=== PATIENT | female | born 1940 | race Caucasian/White ===

== ENCOUNTER 2017-11-18 15:57 | Emergency (ER) | payer OTHER ==
[~2017-11-18] VITALS: Ht 162.6 cm; Wt 106.4 kg
[~2017-11-18 15:57] MED LIST: ASPIR 8181 M1; CVS FISH OIL 11 EAC1; HYDROCHLOROTHIA25 MG PO; LEVOTHYROXINE88 MCG; TOPROL XL100 MG PO
[2017-11-18 16:27] LABS: BASOPHIL (%) 0.3 % (0-1); EOSINOPHIL COUNT 0.1 K/uL (0-0.3); HEMATOCRIT 42.2 % (36.0-46.0); HEMOGLOBIN 14.6 G/DL (11.9-15.5); IMMATURE GRANULOCYTE (%) 0.4 % (0.0-0.7); LYMPHOCYTE (%) 26.7 % (15-42); LYMPHOCYTE COUNT 1.9 K/uL (1.0-2.8); MCH 32.9 PG (29.0-34.0); MCHC 34.6 G/DL (30.0-36.0); MONOCYTE (%) 9.9 % (3-12); MONOCYTE COUNT 0.7 K/uL (0-0.8); NEUTROPHIL (%) 60.7 % (45-76); NEUTROPHIL COUNT 4.2 K/uL (1.8-6.4); PLATELET COUNT 230 K/uL (156-360); RBC DIS.WIDTH-CV 11.9 % (11.8-14.6); RBC DIS.WIDTH-SD 41.7 % (39-53); RED BLOOD COUNT 4.44 M/uL (3.80-5.20); WHITE BLOOD COUNT 6.9 K/uL (4.1-10.2)
[2017-11-18 16:35] LABS: CHLORIDE 98 mEq/L (99-109); POTASSIUM 4.2 mEq/L (3.7-5.4); PTT 29.8 SEC (25-37); SODIUM 137 mEq/L (136-147)
[2017-11-18 16:37] LABS: GLUCOSE 295 mg/dL (70-99)
[2017-11-18 16:39] LABS: TOTAL BILIRUBIN 0.5 mg/dL (0.0-1.0)
[2017-11-18 16:41] LABS: ALKALINE PHOSPHATASE 99 IU/L (3-129); CREATININE 1.1 mg/dL (0.6-1.3); GFR ESTIMATE (CALCULATED) 51 mL/min/
[2017-11-18 16:42] LABS: UREA NITROGEN (BUN) 16 mg/dL (9-23)
[2017-11-18 16:43] LABS: AST (GOT) 44 IU/L (2-34)
[2017-11-18 16:44] LABS: ALT (GPT) 36 IU/L (3-49)
[2017-11-18 19:13] VITALS: BP 176/69
== END 2017-11-18 19:13 | disposition short-term general hospital (02) ==
LOC: EME 15:57
PROVIDERS: Emergency Medicine
DX: I74.3 Embolism and thrombosis of arteries of the lower extremities (principal); R00.1 Bradycardia, unspecified; I45.10 Unspecified right bundle-branch block; I10 Essential (primary) hypertension; E11.9 Type 2 diabetes mellitus without complications; Z79.82 Long term (current) use of aspirin; Z88.8 Allergy status to other drugs, medicaments and biological substances
CPT/HCPCS: 80053; 83605; 85025; 85610; 85730; 93005; 99281; 99285

== ENCOUNTER 2017-12-18 10:53 | Day surgery (SDC) | payer OTHER ==
[~2017-12-18] VITALS: Ht 162.6 cm; Wt 103.9 kg
[~2017-12-18 10:53] MED LIST changes: +ADULT ASPIRIN R81 MG PO; +ELIQUIS5 MG PO; +JANUVIA100 MG PO; +LEVOTHYROXINE100 MCG PO; +LOPRESSOR100 M1 PO
[2017-12-18 11:33] LABS: HEMATOCRIT 39.6 % (36.0-46.0); HEMOGLOBIN 13.3 G/DL (11.9-15.5); MCH 33.1 PG (29.0-34.0); MCHC 33.6 G/DL (30.0-36.0); MCV 98.5 FL (83-99); PLATELET COUNT 282 K/uL (156-360); RBC DIS.WIDTH-CV 13.2 % (11.8-14.6); RBC DIS.WIDTH-SD 47.6 % (39-53); RED BLOOD COUNT 4.02 M/uL (3.80-5.20); WHITE BLOOD COUNT 12.7 K/uL (4.1-10.2)
[2017-12-18 11:42] LABS: CHLORIDE 107 mEq/L (99-109); POTASSIUM 4.5 mEq/L (3.7-5.4); SODIUM 141 mEq/L (136-147)
[2017-12-18 11:44] LABS: GLUCOSE 146 mg/dL (70-99)
[2017-12-18 11:48] LABS: CREATININE 1.1 mg/dL (0.6-1.3); GFR ESTIMATE (CALCULATED) 51 mL/min/
[2017-12-18 11:49] LABS: UREA NITROGEN (BUN) 9 mg/dL (9-23)
[2017-12-18 12:01] VITALS: BP 167/71
[2017-12-18] MEDS ORDERED: NORCO 7.5/321 TABLET PO (13:53)
[2017-12-18 15:33] VITALS: BP 140/63
[2017-12-18 16:40] VITALS: BP 137/64
[2017-12-18 17:56] VITALS: BP 123/90
== END 2017-12-18 18:30 | disposition home or self-care (01) ==
LOC: SDC 10:53
PROVIDERS: Surgery
DX: I97.638 Postprocedural hematoma of a circulatory system organ or structure following other circulatory system procedure (principal); T81.4XXA Infection following a procedure, initial encounter; E11.51 Type 2 diabetes mellitus with diabetic peripheral angiopathy without gangrene; I10 Essential (primary) hypertension; E78.5 Hyperlipidemia, unspecified; I48.0 Paroxysmal atrial fibrillation; I25.2 Old myocardial infarction; K21.9 Gastro-esophageal reflux disease without esophagitis; E66.01 Morbid (severe) obesity due to excess calories; Z68.41 Body mass index [BMI] 40.0-44.9, adult; Z79.82 Long term (current) use of aspirin; Z86.19 Personal history of other infectious and parasitic diseases
CPT/HCPCS: 80048; 82948; 85027; 87070; 87075; 87076; 87077; 87147; 87186; 87205; 93005; J0690; J1644; J2405; J2543; J3010; J3370; J7050; Q0175; S0020

== ENCOUNTER 2017-12-21 03:58 | Inpatient (IN) | payer OTHER ==
[~2017-12-21] VITALS: Ht 162.6 cm; Wt 114.5 kg
[~2017-12-21 03:58] MED LIST changes: +NORCO 7.5/321 TABLET PO
[2017-12-21 05:01] LABS: HEMATOCRIT 33.9 % (36.0-46.0); HEMOGLOBIN 11.4 G/DL (11.9-15.5); MCHC 33.6 G/DL (30.0-36.0); MCV 98.3 FL (83-99); PLATELET COUNT 275 K/uL (156-360); RBC DIS.WIDTH-CV 13.2 % (11.8-14.6); RBC DIS.WIDTH-SD 46.9 % (39-53); RED BLOOD COUNT 3.45 M/uL (3.80-5.20); WHITE BLOOD COUNT 8.4 K/uL (4.1-10.2)
[2017-12-21 05:10] LABS: CHLORIDE 108 mEq/L (99-109); POTASSIUM 4.2 mEq/L (3.7-5.4); SODIUM 141 mEq/L (136-147)
[2017-12-21 05:11] LABS: GLUCOSE 168 mg/dL (70-99)
[2017-12-21 05:15] LABS: CREATININE 1.1 mg/dL (0.6-1.3); GFR ESTIMATE (CALCULATED) 51 mL/min/
[2017-12-21 05:16] LABS: UREA NITROGEN (BUN) 11 mg/dL (9-23)
[2017-12-21 06:01] LABS: ANISOCYTOSIS 1+; BASOPHIL (%) 0.4 % (0-1); EOSINOPHIL (%) 2.6 % (0-5); EOSINOPHIL COUNT 0.2 K/uL (0-0.3); IMMATURE GRANULOCYTE (%) 0.8 % (0.0-0.7); LYMPHOCYTE (%) 14.7 % (15-42); LYMPHOCYTE COUNT 1.2 K/uL (1.0-2.8); MONOCYTE (%) 14.8 % (3-12); MONOCYTE COUNT 1.3 K/uL (0-0.8); NEUTROPHIL (%) 66.7 % (45-76); NEUTROPHIL COUNT 5.6 K/uL (1.8-6.4)
[2017-12-21 08:07] VITALS: BP 160/80
[2017-12-21 11:16] VITALS: BP 152/70
[2017-12-21] MEDS ORDERED: BACTRIM,SEPT1 TABLET PO (13:13)
[2017-12-21] MEDS ORDERED: TOUJEO SOL300 UNIT/1 SC (13:13)
[2017-12-21 16:19] VITALS: BP 160/80
[2017-12-21 19:08] VITALS: BP 162/84
[2017-12-21 23:45] VITALS: BP 160/72
[2017-12-22 02:06] VITALS: BP 190/82
[2017-12-22 07:57] VITALS: BP 125/89
[2017-12-22 08:17] VITALS: BP 151/68
[2017-12-22 11:39] VITALS: BP 143/63
[2017-12-22 15:36] VITALS: BP 145/68
[2017-12-22 20:32] VITALS: BP 143/64
[2017-12-23 00:44] VITALS: BP 142/65
[2017-12-23 04:06] VITALS: BP 136/74
[2017-12-23 07:20] LABS: BASOPHIL (%) 0.6 % (0-1); EOSINOPHIL (%) 3.9 % (0-5); EOSINOPHIL COUNT 0.3 K/uL (0-0.3); HEMATOCRIT 33.7 % (36.0-46.0); HEMOGLOBIN 10.7 G/DL (11.9-15.5); IMMATURE GRANULOCYTE (%) 0.7 % (0.0-0.7); LYMPHOCYTE (%) 16.4 % (15-42); LYMPHOCYTE COUNT 1.1 K/uL (1.0-2.8); MCH 31.9 PG (29.0-34.0); MCHC 31.8 G/DL (30.0-36.0); MCV 100.6 FL (83-99); MONOCYTE (%) 15.5 % (3-12); MONOCYTE COUNT 1.1 K/uL (0-0.8); NEUTROPHIL (%) 62.9 % (45-76); NEUTROPHIL COUNT 4.3 K/uL (1.8-6.4); PLATELET COUNT 269 K/uL (156-360); RBC DIS.WIDTH-CV 13.7 % (11.8-14.6); RBC DIS.WIDTH-SD 50.6 % (39-53); RED BLOOD COUNT 3.35 M/uL (3.80-5.20); WHITE BLOOD COUNT 6.9 K/uL (4.1-10.2)
[2017-12-23 07:45] LABS: CHLORIDE 110 MEQ/L (99-109); GFR ESTIMATE (CALCULATED) 18 mL/min/; GLUCOSE 138 mg/dL (70-99); POTASSIUM 4.6 MEQ/L (3.7-5.4); SODIUM 143 MEQ/L (136-147)
[2017-12-23 07:50] LABS: CREATININE 2.7 MG/DL (0.6-1.3); UREA NITROGEN (BUN) 21 mg/dL (9-23)
[2017-12-23 08:08] VITALS: BP 147/68
[2017-12-23 11:48] VITALS: BP 115/61
[2017-12-23 15:51] VITALS: BP 138/70
[2017-12-23 19:46] VITALS: BP 152/74
[2017-12-24 00:16] VITALS: BP 153/70
[2017-12-24 04:13] VITALS: BP 152/72
[2017-12-24 06:18] LABS: BASOPHIL (%) 0.4 % (0-1); EOSINOPHIL (%) 3.7 % (0-5); EOSINOPHIL COUNT 0.3 K/uL (0-0.3); HEMATOCRIT 32.6 % (36.0-46.0); HEMOGLOBIN 10.4 G/DL (11.9-15.5); IMMATURE GRANULOCYTE (%) 0.6 % (0.0-0.7); LYMPHOCYTE (%) 12.5 % (15-42); LYMPHOCYTE COUNT 0.9 K/uL (1.0-2.8); MCH 31.5 PG (29.0-34.0); MCHC 31.9 G/DL (30.0-36.0); MCV 98.8 FL (83-99); MONOCYTE (%) 13.1 % (3-12); MONOCYTE COUNT 0.9 K/uL (0-0.8); NEUTROPHIL (%) 69.7 % (45-76); PLATELET COUNT 258 K/uL (156-360); RBC DIS.WIDTH-CV 13.6 % (11.8-14.6); RBC DIS.WIDTH-SD 49.4 % (39-53); WHITE BLOOD COUNT 7.1 K/uL (4.1-10.2)
[2017-12-24 08:00] VITALS: BP 176/72
[2017-12-24 08:48] LABS: CHLORIDE 108 MEQ/L (99-109); GFR ESTIMATE (CALCULATED) 12 mL/min/; GLUCOSE 164 mg/dL (70-99); POTASSIUM 4.3 MEQ/L (3.7-5.4); SODIUM 139 MEQ/L (136-147); UREA NITROGEN (BUN) 27 mg/dL (9-23)
[2017-12-24 11:05] VITALS: BP 144/67
[2017-12-24 15:39] VITALS: BP 168/74
[2017-12-24 18:22] LABS: CREATINE KINASE 41 IU/L (1-294); FASTING STATUS RT
[2017-12-24 19:30] LABS: APPEARANCE CLEAR ((CLEAR)); BILIRUBIN NEGATIVE; BLOOD MODERATE; COLOR YELLOW ((YELLOW)); GLUCOSE (STRIP) NEGATIVE; KETONES NEGATIVE; LEUKOCYTES MODERATE; NITRITE NEGATIVE; PROTEIN (STRIP) 30; SPECIFIC GRAVITY 1.012 (1.000-1.030); UROBILINOGEN 0.2 MG/DL (0.2-1.0)
[2017-12-24 19:36] LABS: BACTERIA RARE /HPF; EPITHELIAL CELLS 2+ /HPF; HYALINE CASTS 0-5 /LPF; MUCUS TRACE /LPF
[2017-12-24 20:45] LABS: UR CREATININE CONCENTRATION 131.2 MG/DL
[2017-12-24 21:20] LABS: EOSINOPHILS,URINE NONE SEEN
[2017-12-24 23:54] VITALS: BP 181/77
[2017-12-25 05:27] VITALS: BP 160/74
[2017-12-25 05:58] LABS: ALBUMIN 2.7 G/DL (3.2-4.8); CHLORIDE 105 MEQ/L (99-109); CREATININE 4.5 MG/DL (0.6-1.3); GFR ESTIMATE (CALCULATED) 10 mL/min/; GLUCOSE 165 mg/dL (70-99); PHOSPHORUS 4.6 mg/dL (2.5-4.9); POTASSIUM 4.3 MEQ/L (3.7-5.4); SODIUM 135 MEQ/L (136-147); UREA NITROGEN (BUN) 34 mg/dL (9-23)
[2017-12-25 06:01] LABS: C4 COMPLEMENT 27 MG/DL (10-40)
[2017-12-25 08:11] VITALS: BP 177/74
[2017-12-25 16:35] VITALS: BP 184/81
[2017-12-26] VITALS: BP 185/79
[2017-12-26 06:48] LABS: ALBUMIN 2.7 G/DL (3.2-4.8); CHLORIDE 106 MEQ/L (99-109); CREATININE 5.2 MG/DL (0.6-1.3); GFR ESTIMATE (CALCULATED) 9 mL/min/; GLUCOSE 155 mg/dL (70-99); PHOSPHORUS 4.5 mg/dL (2.5-4.9); POTASSIUM 4.5 MEQ/L (3.7-5.4); SODIUM 134 MEQ/L (136-147); UREA NITROGEN (BUN) 37 mg/dL (9-23)
[2017-12-26 08:07] VITALS: BP 186/78
[2017-12-26 12:00] VITALS: BP 176/81
[2017-12-26 15:29] VITALS: BP 155/67
[2017-12-26 21:08] VITALS: BP 175/82
[2017-12-27 00:16] VITALS: BP 168/72
[2017-12-27 05:11] VITALS: BP 165/77
[2017-12-27 06:56] LABS: ALBUMIN 2.8 G/DL (3.2-4.8); CHLORIDE 103 MEQ/L (99-109); CREATININE 5.1 MG/DL (0.6-1.3); GFR ESTIMATE (CALCULATED) 9 mL/min/; GLUCOSE 138 mg/dL (70-99); PHOSPHORUS 4.9 mg/dL (2.5-4.9); POTASSIUM 4.5 MEQ/L (3.7-5.4); SODIUM 132 MEQ/L (136-147); UREA NITROGEN (BUN) 39 mg/dL (9-23)
[2017-12-27 08:13] VITALS: BP 169/72
[2017-12-27 15:35] VITALS: BP 143/64
[2017-12-27 23:52] VITALS: BP 154/70
[2017-12-28 07:08] LABS: ALBUMIN 2.7 G/DL (3.2-4.8); CHLORIDE 100 MEQ/L (99-109); CREATININE 5.4 MG/DL (0.6-1.3); GFR ESTIMATE (CALCULATED) 8 mL/min/; GLUCOSE 140 mg/dL (70-99); PHOSPHORUS 5.5 mg/dL (2.5-4.9); POTASSIUM 4.6 MEQ/L (3.7-5.4); SODIUM 130 MEQ/L (136-147); UREA NITROGEN (BUN) 46 mg/dL (9-23)
[2017-12-28 07:49] VITALS: BP 161/70
[2017-12-28 15:38] VITALS: BP 134/70
[2017-12-29 00:37] VITALS: BP 131/63
[2017-12-29 06:18] LABS: ALBUMIN 2.9 G/DL (3.2-4.8); CHLORIDE 99 MEQ/L (99-109); PHOSPHORUS 6.4 mg/dL (2.5-4.9); SODIUM 128 MEQ/L (136-147); UREA NITROGEN (BUN) 52 mg/dL (9-23)
[2017-12-29 06:22] LABS: CREATININE 6.4 MG/DL (0.6-1.3); GFR ESTIMATE (CALCULATED) 7 mL/min/; GLUCOSE 267 mg/dL (70-99); POTASSIUM 5.9 MEQ/L (3.7-5.4)
[2017-12-29 07:39] VITALS: BP 144/61
[2017-12-29 12:13] VITALS: BP 121/56
[2017-12-29 14:31] LABS: CHLORIDE 100 mEq/L (99-109); POTASSIUM 4.2 mEq/L (3.7-5.4); SODIUM 131 mEq/L (136-147)
[2017-12-29 14:42] LABS: GLUCOSE 278 mg/dL (70-99)
[2017-12-29 14:45] LABS: CREATININE 6.5 mg/dL (0.6-1.3); GFR ESTIMATE (CALCULATED) 7 mL/min/
[2017-12-29 14:46] LABS: UREA NITROGEN (BUN) 57 mg/dL (9-23)
[2017-12-29 16:22] VITALS: BP 122/62
[2017-12-29 19:43] VITALS: BP 146/65
[2017-12-29 23:31] VITALS: BP 139/70
[2017-12-30 04:31] VITALS: BP 134/63
[2017-12-30 06:27] LABS: BASOPHIL (%) 0.1 % (0-1); EOSINOPHIL (%) 0 % (0-5); HEMOGLOBIN 11.1 G/DL (11.9-15.5); IMMATURE GRANULOCYTE (%) 0.7 % (0.0-0.7); LYMPHOCYTE (%) 1.8 % (15-42); LYMPHOCYTE COUNT 0.5 K/uL (1.0-2.8); MCH 32.6 PG (29.0-34.0); MCHC 33.6 G/DL (30.0-36.0); MCV 96.8 FL (83-99); MONOCYTE (%) 6.9 % (3-12); MONOCYTE COUNT 1.8 K/uL (0-0.8); NEUTROPHIL (%) 90.5 % (45-76); NEUTROPHIL COUNT 24.1 K/uL (1.8-6.4); RBC DIS.WIDTH-CV 13.8 % (11.8-14.6); RBC DIS.WIDTH-SD 49.1 % (39-53); RED BLOOD COUNT 3.41 M/uL (3.80-5.20); WHITE BLOOD COUNT 26.7 K/uL (4.1-10.2)
[2017-12-30 06:43] LABS: PLATELET COUNT 369 K/uL (156-360)
[2017-12-30 06:53] LABS: ALBUMIN 3.1 G/DL (3.2-4.8); CHLORIDE 97 MEQ/L (99-109); CREATININE 5.9 MG/DL (0.6-1.3); GFR ESTIMATE (CALCULATED) 7 mL/min/; GLUCOSE 195 mg/dL (70-99); PHOSPHORUS 6.5 mg/dL (2.5-4.9); POTASSIUM 4.2 MEQ/L (3.7-5.4); SODIUM 130 MEQ/L (136-147); UREA NITROGEN (BUN) 59 mg/dL (9-23)
[2017-12-30 07:43] VITALS: BP 132/65
[2017-12-30 12:40] VITALS: BP 135/60
[2017-12-30 16:56] VITALS: BP 132/62
[2017-12-30 23:47] VITALS: BP 121/57
[2017-12-31 06:56] LABS: ALBUMIN 2.8 G/DL (3.2-4.8); CHLORIDE 97 MEQ/L (99-109); CREATININE 6.7 MG/DL (0.6-1.3); GFR ESTIMATE (CALCULATED) 6 mL/min/; GLUCOSE 146 mg/dL (70-99); PHOSPHORUS 6.7 mg/dL (2.5-4.9); SODIUM 131 MEQ/L (136-147); UREA NITROGEN (BUN) 71 mg/dL (9-23)
[2017-12-31 07:40] LABS: HEMATOCRIT 30.4 % (36.0-46.0); HEMOGLOBIN 10.2 G/DL (11.9-15.5); MCH 32.4 PG (29.0-34.0); MCHC 33.6 G/DL (30.0-36.0); MCV 96.5 FL (83-99); PLATELET COUNT 341 K/uL (156-360); RBC DIS.WIDTH-SD 49.2 % (39-53); RED BLOOD COUNT 3.15 M/uL (3.80-5.20); WHITE BLOOD COUNT 21.1 K/uL (4.1-10.2)
[2017-12-31 07:55] VITALS: BP 134/63
[2017-12-31 09:25] LABS: INTER. NORMALIZED RATIO 1.2
[2017-12-31 09:28] LABS: PTT 27.3 SEC (25-37)
[2017-12-31 09:50] LABS: C4 COMPLEMENT 28 MG/DL (10-40)
[2017-12-31 11:50] VITALS: BP 138/68
[2017-12-31 12:44] LABS: HEPATITIS B SURFACE ANTIGEN Nonreactive; HEPATITIS C ANTIBODY Nonreactive
[2017-12-31 12:45] LABS: HEPATITIS B SURFACE ANTIBODY Nonreactive
[2017-12-31 16:34] VITALS: BP 137/64
[2017-12-31 19:18] VITALS: BP 132/60
[2017-12-31 21:30] VITALS: BP 136/64
[2017-12-31 22:01] LABS: APPEARANCE CLOUDY ((CLEAR)); BILIRUBIN NEGATIVE; BLOOD SMALL; COLOR YELLOW ((YELLOW)); GLUCOSE (STRIP) 50; KETONES NEGATIVE; LEUKOCYTES TRACE; NITRITE NEGATIVE; PROTEIN (STRIP) 100; SPECIFIC GRAVITY 1.015 (1.000-1.030); UROBILINOGEN 0.2 MG/DL (0.2-1.0)
[2017-12-31 22:20] LABS: BACTERIA RARE /HPF; EPITHELIAL CELLS 2+ /HPF; MUCUS NONE SEEN /LPF; RED BLOOD CELLS 0-5 /HPF (0-5)
[2018-01-01] VITALS (8 sets, daily range): BP systolic 112–139; BP diastolic 53–71
[2018-01-01 06:17] LABS: BASOPHIL (%) 0 % (0-1); EOSINOPHIL (%) 0 % (0-5); HEMATOCRIT 27.9 % (36.0-46.0); HEMOGLOBIN 9.3 G/DL (11.9-15.5); IMMATURE GRANULOCYTE (%) 0.6 % (0.0-0.7); LYMPHOCYTE (%) 4.1 % (15-42); LYMPHOCYTE COUNT 0.6 K/uL (1.0-2.8); MCH 31.4 PG (29.0-34.0); MCHC 33.3 G/DL (30.0-36.0); MCV 94.3 FL (83-99); MONOCYTE (%) 8.6 % (3-12); MONOCYTE COUNT 1.2 K/uL (0-0.8); NEUTROPHIL (%) 86.7 % (45-76); NEUTROPHIL COUNT 11.8 K/uL (1.8-6.4); PLATELET COUNT 318 K/uL (156-360); RBC DIS.WIDTH-CV 13.9 % (11.8-14.6); RBC DIS.WIDTH-SD 47.6 % (39-53); RED BLOOD COUNT 2.96 M/uL (3.80-5.20); WHITE BLOOD COUNT 13.7 K/uL (4.1-10.2)
[2018-01-01 06:39] LABS: CHLORIDE 96 MEQ/L (99-109); CREATININE 6.7 MG/DL (0.6-1.3); GFR ESTIMATE (CALCULATED) 6 mL/min/; GLUCOSE 176 mg/dL (70-99); SODIUM 129 MEQ/L (136-147); UREA NITROGEN (BUN) 84 mg/dL (9-23)
[2018-01-02] VITALS (7 sets, daily range): BP systolic 119–155; BP diastolic 56–88
[2018-01-02 06:09] LABS: BASOPHIL (%) 0.1 % (0-1); EOSINOPHIL (%) 0 % (0-5); HEMATOCRIT 28.1 % (36.0-46.0); HEMOGLOBIN 9.5 G/DL (11.9-15.5); IMMATURE GRANULOCYTE (%) 0.7 % (0.0-0.7); LYMPHOCYTE (%) 5.1 % (15-42); LYMPHOCYTE COUNT 0.8 K/uL (1.0-2.8); MCH 32.1 PG (29.0-34.0); MCHC 33.8 G/DL (30.0-36.0); MCV 94.9 FL (83-99); MONOCYTE (%) 8.1 % (3-12); MONOCYTE COUNT 1.2 K/uL (0-0.8); NEUTROPHIL COUNT 13.1 K/uL (1.8-6.4); PLATELET COUNT 309 K/uL (156-360); RBC DIS.WIDTH-SD 48.6 % (39-53); RED BLOOD COUNT 2.96 M/uL (3.80-5.20); WHITE BLOOD COUNT 15.3 K/uL (4.1-10.2)
[2018-01-02 06:29] LABS: CHLORIDE 94 MEQ/L (99-109); CREATININE 6.9 MG/DL (0.6-1.3); GFR ESTIMATE (CALCULATED) 6 mL/min/; GLUCOSE 173 mg/dL (70-99); POTASSIUM 4.5 MEQ/L (3.7-5.4); SODIUM 129 MEQ/L (136-147); UREA NITROGEN (BUN) 89 mg/dL (9-23)
[2018-01-02 07:02] LABS: PHOSPHORUS 8.5 mg/dL (2.5-4.9)
[2018-01-03 04:18] VITALS: BP 134/89
[2018-01-03 05:57] LABS: HEMATOCRIT 30.3 % (36.0-46.0); HEMOGLOBIN 10.1 G/DL (11.9-15.5); MCH 31.7 PG (29.0-34.0); MCHC 33.3 G/DL (30.0-36.0); PLATELET COUNT 343 K/uL (156-360); RBC DIS.WIDTH-CV 14.1 % (11.8-14.6); RBC DIS.WIDTH-SD 49.2 % (39-53); RED BLOOD COUNT 3.19 M/uL (3.80-5.20); WHITE BLOOD COUNT 14.9 K/uL (4.1-10.2)
[2018-01-03 06:22] LABS: ALBUMIN 3.1 G/DL (3.2-4.8); CHLORIDE 94 MEQ/L (99-109); GFR ESTIMATE (CALCULATED) 8 mL/min/; GLUCOSE 167 mg/dL (70-99); PHOSPHORUS 6.5 mg/dL (2.5-4.9); POTASSIUM 4.7 MEQ/L (3.7-5.4); SODIUM 132 MEQ/L (136-147); UREA NITROGEN (BUN) 69 mg/dL (9-23)
[2018-01-03 06:26] LABS: CREATININE 5.4 MG/DL (0.6-1.3)
[2018-01-03 08:03] VITALS: BP 117/73
[2018-01-03 16:00] VITALS: BP 124/86
[2018-01-03 20:15] VITALS: BP 140/68
[2018-01-03 23:40] VITALS: BP 129/79
[2018-01-04 03:57] VITALS: BP 152/91
[2018-01-04 05:48] LABS: BASOPHIL (%) 0.1 % (0-1); EOSINOPHIL (%) 0 % (0-5); HEMATOCRIT 30.1 % (36.0-46.0); HEMOGLOBIN 10.1 G/DL (11.9-15.5); IMMATURE GRANULOCYTE (%) 0.7 % (0.0-0.7); LYMPHOCYTE (%) 3.9 % (15-42); LYMPHOCYTE COUNT 0.7 K/uL (1.0-2.8); MCH 31.7 PG (29.0-34.0); MCHC 33.6 G/DL (30.0-36.0); MCV 94.4 FL (83-99); MONOCYTE (%) 9.7 % (3-12); MONOCYTE COUNT 1.7 K/uL (0-0.8); NEUTROPHIL (%) 85.6 % (45-76); NEUTROPHIL COUNT 15.1 K/uL (1.8-6.4); PLATELET COUNT 327 K/uL (156-360); RBC DIS.WIDTH-CV 14.1 % (11.8-14.6); RBC DIS.WIDTH-SD 48.6 % (39-53); RED BLOOD COUNT 3.19 M/uL (3.80-5.20); WHITE BLOOD COUNT 17.6 K/uL (4.1-10.2)
[2018-01-04 06:04] LABS: ALBUMIN 2.9 G/DL (3.2-4.8); CHLORIDE 93 MEQ/L (99-109); CREATININE 5.7 MG/DL (0.6-1.3); GFR ESTIMATE (CALCULATED) 8 mL/min/; GLUCOSE 152 mg/dL (70-99); PHOSPHORUS 6.6 mg/dL (2.5-4.9); POTASSIUM 4.7 MEQ/L (3.7-5.4); SODIUM 131 MEQ/L (136-147); UREA NITROGEN (BUN) 72 mg/dL (9-23)
[2018-01-04 07:48] VITALS: BP 133/66
[2018-01-04 13:34] VITALS: BP 104/61
[2018-01-04 19:30] VITALS: BP 125/65
[2018-01-04 21:31] VITALS: BP 122/69
[2018-01-04 23:27] VITALS: BP 114/71
[2018-01-05 03:33] VITALS: BP 134/82
[2018-01-05 06:09] LABS: ALBUMIN 2.9 G/DL (3.2-4.8); CHLORIDE 94 MEQ/L (99-109); GFR ESTIMATE (CALCULATED) 10 mL/min/; GLUCOSE 168 mg/dL (70-99); PHOSPHORUS 5.2 mg/dL (2.5-4.9); POTASSIUM 4.6 MEQ/L (3.7-5.4); SODIUM 134 MEQ/L (136-147); UREA NITROGEN (BUN) 56 mg/dL (9-23)
[2018-01-05 06:12] LABS: CREATININE 4.5 MG/DL (0.6-1.3)
[2018-01-05 07:33] VITALS: BP 126/72
[2018-01-05 11:32] VITALS: BP 125/67
[2018-01-05 13:23] LABS: BASOPHIL (%) 0.1 % (0-1); EOSINOPHIL (%) 0.1 % (0-5); HEMATOCRIT 31.6 % (36.0-46.0); HEMOGLOBIN 10.5 G/DL (11.9-15.5); IMMATURE GRANULOCYTE (%) 1.3 % (0.0-0.7); LYMPHOCYTE COUNT 0.5 K/uL (1.0-2.8); MCH 32.1 PG (29.0-34.0); MCHC 33.2 G/DL (30.0-36.0); MCV 96.6 FL (83-99); MONOCYTE COUNT 0.5 K/uL (0-0.8); NEUTROPHIL (%) 90.5 % (45-76); NEUTROPHIL COUNT 12.1 K/uL (1.8-6.4); PLATELET COUNT 336 K/uL (156-360); RBC DIS.WIDTH-CV 14.2 % (11.8-14.6); RBC DIS.WIDTH-SD 50.2 % (39-53); RED BLOOD COUNT 3.27 M/uL (3.80-5.20); WHITE BLOOD COUNT 13.4 K/uL (4.1-10.2)
[2018-01-05 16:59] LABS: Neutrophil Cytoplasmic Aby Negative
[2018-01-05 19:24] VITALS: BP 125/77
[2018-01-06 00:11] VITALS: BP 134/72
[2018-01-06 04:00] VITALS: BP 101/60
[2018-01-06 06:20] LABS: HEMATOCRIT 31.8 % (36.0-46.0); HEMOGLOBIN 10.2 G/DL (11.9-15.5); MCH 31.6 PG (29.0-34.0); MCHC 32.1 G/DL (30.0-36.0); MCV 98.5 FL (83-99); NRBC (%) 0.3 /100 WBC (0-0); PLATELET COUNT 325 K/uL (156-360); RBC DIS.WIDTH-CV 14.2 % (11.8-14.6); RBC DIS.WIDTH-SD 51.7 % (39-53); RED BLOOD COUNT 3.23 M/uL (3.80-5.20); WHITE BLOOD COUNT 28.8 K/uL (4.1-10.2)
[2018-01-06 07:07] VITALS: BP 104/66
[2018-01-06 07:13] LABS: ALBUMIN 2.9 G/DL (3.2-4.8); CHLORIDE 95 MEQ/L (99-109); CREATININE 3.9 MG/DL (0.6-1.3); GFR ESTIMATE (CALCULATED) 12 mL/min/; GLUCOSE 196 mg/dL (70-99); PHOSPHORUS 5.3 mg/dL (2.5-4.9); POTASSIUM 5.4 MEQ/L (3.7-5.4); SODIUM 133 MEQ/L (136-147); UREA NITROGEN (BUN) 44 mg/dL (9-23)
[2018-01-06 11:17] VITALS: BP 106/58
[2018-01-06 16:32] VITALS: BP 108/70
[2018-01-06 20:13] VITALS: BP 113/70
[2018-01-07 00:28] VITALS: BP 115/64
[2018-01-07 04:31] VITALS: BP 103/70
[2018-01-07 06:12] LABS: ALBUMIN 2.7 G/DL (3.2-4.8); CHLORIDE 96 MEQ/L (99-109); GFR ESTIMATE (CALCULATED) 9 mL/min/; GLUCOSE 162 mg/dL (70-99); PHOSPHORUS 5.2 mg/dL (2.5-4.9); POTASSIUM 5.1 MEQ/L (3.7-5.4); SODIUM 132 MEQ/L (136-147); UREA NITROGEN (BUN) 53 mg/dL (9-23)
[2018-01-07 06:13] LABS: CREATININE 5.1 MG/DL (0.6-1.3)
[2018-01-07 09:07] LABS: BASOPHIL (%) 0.2 % (0-1); EOSINOPHIL (%) 0.1 % (0-5); HEMOGLOBIN 9.7 G/DL (11.9-15.5); IMMATURE GRANULOCYTE (%) 0.9 % (0.0-0.7); LYMPHOCYTE (%) 9.5 % (15-42); LYMPHOCYTE COUNT 1.6 K/uL (1.0-2.8); MCH 31.8 PG (29.0-34.0); MCHC 32.3 G/DL (30.0-36.0); MCV 98.4 FL (83-99); MONOCYTE (%) 6.8 % (3-12); MONOCYTE COUNT 1.2 K/uL (0-0.8); NEUTROPHIL (%) 82.5 % (45-76); NEUTROPHIL COUNT 13.9 K/uL (1.8-6.4); NRBC (%) 0.5 /100 WBC (0-0); PLATELET COUNT 290 K/uL (156-360); RBC DIS.WIDTH-CV 14.6 % (11.8-14.6); RED BLOOD COUNT 3.05 M/uL (3.80-5.20); WHITE BLOOD COUNT 16.9 K/uL (4.1-10.2)
[2018-01-07 16:09] VITALS: BP 106/54
[2018-01-07 20:09] VITALS: BP 119/76
[2018-01-08 00:18] VITALS: BP 118/64
[2018-01-08 04:08] VITALS: BP 115/68
[2018-01-08 05:59] LABS: BASOPHIL (%) 0.1 % (0-1); EOSINOPHIL (%) 0 % (0-5); HEMOGLOBIN 10.3 G/DL (11.9-15.5); IMMATURE GRANULOCYTE (%) 1.2 % (0.0-0.7); LYMPHOCYTE (%) 8.5 % (15-42); LYMPHOCYTE COUNT 1.3 K/uL (1.0-2.8); MCH 31.9 PG (29.0-34.0); MCHC 32.2 G/DL (30.0-36.0); MCV 99.1 FL (83-99); MONOCYTE (%) 7.5 % (3-12); MONOCYTE COUNT 1.2 K/uL (0-0.8); NEUTROPHIL (%) 82.7 % (45-76); NEUTROPHIL COUNT 12.8 K/uL (1.8-6.4); NRBC (%) 0.8 /100 WBC (0-0); PLATELET COUNT 315 K/uL (156-360); RBC DIS.WIDTH-CV 14.5 % (11.8-14.6); RBC DIS.WIDTH-SD 52.5 % (39-53); RED BLOOD COUNT 3.23 M/uL (3.80-5.20); WHITE BLOOD COUNT 15.5 K/uL (4.1-10.2)
[2018-01-08 06:37] LABS: ALBUMIN 3.1 G/DL (3.2-4.8); CHLORIDE 94 MEQ/L (99-109); GFR ESTIMATE (CALCULATED) 11 mL/min/; GLUCOSE 177 mg/dL (70-99); PHOSPHORUS 4.1 mg/dL (2.5-4.9); POTASSIUM 4.8 MEQ/L (3.7-5.4); SODIUM 135 MEQ/L (136-147); UREA NITROGEN (BUN) 38 mg/dL (9-23)
[2018-01-08 06:49] LABS: CREATININE 4.2 MG/DL (0.6-1.3)
[2018-01-08 08:33] VITALS: BP 120/62
[2018-01-08 12:21] VITALS: BP 120/62
[2018-01-08 16:01] VITALS: BP 111/67
[2018-01-08 20:18] VITALS: BP 139/79
[2018-01-09 00:53] VITALS: BP 122/84
[2018-01-09 06:32] LABS: ALBUMIN 2.9 G/DL (3.2-4.8); CHLORIDE 96 MEQ/L (99-109); CREATININE 4.6 MG/DL (0.6-1.3); GFR ESTIMATE (CALCULATED) 10 mL/min/; GLUCOSE 153 mg/dL (70-99); POTASSIUM 4.8 MEQ/L (3.7-5.4); SODIUM 134 MEQ/L (136-147); UREA NITROGEN (BUN) 54 mg/dL (9-23)
[2018-01-09 06:42] VITALS: BP 126/66
[2018-01-09 07:46] LABS: BASOPHIL (%) 0.2 % (0-1); EOSINOPHIL (%) 0.5 % (0-5); EOSINOPHIL COUNT 0.1 K/uL (0-0.3); HEMATOCRIT 30.5 % (36.0-46.0); HEMOGLOBIN 9.9 G/DL (11.9-15.5); LYMPHOCYTE (%) 9.4 % (15-42); LYMPHOCYTE COUNT 1.6 K/uL (1.0-2.8); MCHC 32.5 G/DL (30.0-36.0); MCV 98.7 FL (83-99); MONOCYTE (%) 7.7 % (3-12); MONOCYTE COUNT 1.3 K/uL (0-0.8); NEUTROPHIL (%) 80.2 % (45-76); NEUTROPHIL COUNT 13.5 K/uL (1.8-6.4); NRBC (%) 1.1 /100 WBC (0-0); PLATELET COUNT 285 K/uL (156-360); RBC DIS.WIDTH-CV 14.6 % (11.8-14.6); RBC DIS.WIDTH-SD 51.9 % (39-53); RED BLOOD COUNT 3.09 M/uL (3.80-5.20); WHITE BLOOD COUNT 16.8 K/uL (4.1-10.2)
[2018-01-09] MEDS ORDERED: ELIQUIS2.5 MG PO (13:36)
[2018-01-09] MEDS ORDERED: JANUVIA25 MG PO (13:36)
[2018-01-09] MEDS ORDERED: PREDNISONE10 MG PO (13:52)
== END 2018-01-09 15:27 | disposition home health service (06) | DRG 853 ==
LOC: EME → EDBD 03:58 → EME 03:58 → 2EASTP 05:29 → EDOF 05:29 → ENRESERV 05:32 → 3EAST 07:26 → ENRESERV 23:31 → 2EASTP 12-22 02:00 → ENPENDDIS 01-09 14:10 → 2EASTP 01-09 15:27
PROVIDERS: Emergency Medicine; Hospitalist; Internal Medicine; Internal Medicine Nephrology; Student in an Organized Health Care Education/Training Program; Surgery
PROC: 0TB13ZX Excision of Left Kidney, Percutaneous Approach, Diagnostic (ICD-10-PCS; principal; 2018-01-01)
PROC: 5A1D70Z Performance of Urinary Filtration, Intermittent, Less than 6 Hours Per Day (ICD-10-PCS; 2018-01-02)
PROC: 02HV33Z Insertion of Infusion Device into Superior Vena Cava, Percutaneous Approach (ICD-10-PCS; 2018-01-02)
PROC: 02H633Z Insertion of Infusion Device into Right Atrium, Percutaneous Approach (ICD-10-PCS; 2018-01-05)
PROC: 0JBP0ZZ Excision of Left Lower Leg Subcutaneous Tissue and Fascia, Open Approach (ICD-10-PCS; 2018-01-05)
PROC: 06PY33Z Removal of Infusion Device from Lower Vein, Percutaneous Approach (ICD-10-PCS; 2018-01-05)
DX: A41.9 Sepsis, unspecified organism (principal); L03.116 Cellulitis of left lower limb; G93.41 Metabolic encephalopathy; R65.20 Severe sepsis without septic shock; T81.89XA Other complications of procedures, not elsewhere classified, initial encounter; Y83.9 Surgical procedure, unspecified as the cause of abnormal reaction of the patient, or of later complication, without mention of misadventure at the time of the procedure; E87.5 Hyperkalemia; E87.2 Acidosis; N17.9 Acute kidney failure, unspecified; N04.4 Nephrotic syndrome with diffuse endocapillary proliferative glomerulonephritis; E87.1 Hypo-osmolality and hyponatremia; E83.39 Other disorders of phosphorus metabolism; D72.829 Elevated white blood cell count, unspecified; T38.0X5A Adverse effect of glucocorticoids and synthetic analogues, initial encounter; R60.0 Localized edema; I48.0 Paroxysmal atrial fibrillation; B95.8 Unspecified staphylococcus as the cause of diseases classified elsewhere; B96.1 Klebsiella pneumoniae [K. pneumoniae] as the cause of diseases classified elsewhere; E11.9 Type 2 diabetes mellitus without complications; I10 Essential (primary) hypertension; E03.9 Hypothyroidism, unspecified; E66.9 Obesity, unspecified; Z68.41 Body mass index [BMI] 40.0-44.9, adult; I25.2 Old myocardial infarction; Z79.82 Long term (current) use of aspirin; Z79.01 Long term (current) use of anticoagulants; Z79.4 Long term (current) use of insulin; Z86.718 Personal history of other venous thrombosis and embolism
CPT/HCPCS: 71045; 76770; 77012; 80048; 80048 91; 80069; 81003; 82436; 82550; 82570; 82948; 84100; 84156; 84300; 85025; 85027; 85610; 85651; 85730; 86021 90; 86038; 86140; 86160; 86706; 86803; 87040; 87070; 87075; 87076; 87077; 87147; 87186; 87205; 87340; 88305; 88313 90; 88346 90; 88348 90; 89190; 93005; 93971; 97530 GO; 99281; 99284; A6214; C1769; C1788; J0690; J0881; J1630; J1644; J1815; J2405; J2543; J2597; J2930; J3010; J3370; J7030; J7050; J7120; J7512; Q0175; S0020